=== PATIENT | female | born 1985 | race Caucasian/White ===

== ENCOUNTER 2018-04-23 00:31 | Emergency (ER) | payer OTHER ==
[~2018-04-23] VITALS: Ht 167.6 cm; Wt 64.0 kg
[2018-04-23 00:36] VITALS: Ht 167.6 cm; Wt 64.0 kg
[2018-04-23] MEDS ORDERED: MACROBID 100MG HOME PACK 1 EA VIAL PO ONE (01:00)
[2018-04-23] MEDS ORDERED: NITR-5 PO (01:23)
--- NOTE | 2018-04-23 01:23 | EMERGENCY ROOM VISIT NOTE ---
History First contact with patient: 00:39 Chief Complaint: URINARY SYMPTOMS Stated Complaint: UTI Nursing Triage Summary: pt states she is pretty sure she has a uti, burning and pain wiht urination History of Present Illness The patient is a 32 year old female who presents to the Emergency Room with complaints of a urinary tract infection. The patient states she has had urinary frequency and burning which began a few hours ago. She rates her discomfort a 5/10. She tried to drink water and see if her symptoms would go away but they have persisted. She reports she has fairly frequent UTIs, with a few per year. She denies any history of kidney infections or stones. She took Pyridium prior to arrival. She denies any fevers, abdominal pain, back pain, nausea or vomiting. Review of Systems A complete 6 point review of systems was reviewed with the patient with pertinent positives and negatives as per history of present illness. All else were negative. Past Medical/Surgical History Medical Problems: (1) No significant active problems Social History Smoking Status: Never Smoker Marital Status: Housing Status: lives with family Occupation Status: employed Current/Historical Medications Scheduled Nitrofurantoin Monohyd Macrocr (Macrobid), 100 MG PO BID Physical Exam Vital Signs Date Time Temp Pulse Resp B/P (MAP) Pulse Ox O2 Delivery O2 Flow Rate FiO2 04/23/18 01:32 36.3 81 22 115/81 98 04/23/18 00:36 36.3 80 18 114/72 97 Room Air Physical Exam VITALS: Vitals are noted on the nurse's note and reviewed by myself. Vital signs stable. GENERAL: This is a 32-year-old female, in no acute distress, nondiaphoretic, well-developed well-nourished. HEART: Regular rate and rhythm without murmurs gallops or rubs. LUNGS: Clear to auscultation bilaterally without wheezes, rales or rhonchi. ABDOMEN: Positive bowel sounds x 4. Soft, nontender to palpation. NEURO: Patient was alert and oriented to person place and time. Medical Decision & Procedures Laboratory Results Test 04/23/18 00:55 Urine Color DK YELLOW Urine Appearance CLEAR (CLEAR) Urine pH 8.0 (4.5-7.5) Urine Specific [place] 1.005 (1.000-1.030) Urine Protein NEG (NEG) Urine Glucose (UA) NEG (NEG) Urine Ketones NEG (NEG) Urine Occult Blood 3+ (NEG) Urine Nitrite POS (NEG) Urine Bilirubin NEG (NEG) Urine Urobilinogen NEG (NEG) Urine Leukocyte Esterase LARGE (NEG) Urine WBC (Auto) >30 /hpf (0-5) Urine RBC (Auto) 0-4 /hpf (0-4) Urine Hyaline Casts (Auto) 1-5 /lpf (0-5) Urine Epithelial Cells (Auto) 5-10 /lpf (0-5) Urine Bacteria (Auto) NEG (NEG) Urine Test NEG (NEG) Medications Administered Medications (Trade) Dose Ordered Sig/[place] Route Start Time Stop Time Status Last Admin Dose Admin Nitrofurantoin (Macrobid Homepack 100MG) 1 homepack UD ONCE PO 04/23/18 01:00 04/23/18 01:01 DC 04/23/18 01:02 1 HOMEPACK Medical Decision Differential diagnosis includes UTI, vaginal infection, among others. The patient was evaluated as above. She has findings suggestive of a UTI. She will be placed on Macrobid. She has Pyridium at home and will continue taking this as needed for her discomfort. She was advised to return with new or worsening symptoms. She verbalized understanding of my assessment and treatment plan and was discharged home in good condition. Medication Reconcilliation Current Medication List: was personally reviewed by me Blood Pressure Screening Patient's blood pressure: Normal blood pressure Impression Primary Impression: Urinary tract infection Departure Information Dispostion Home / Self-Care Condition GOOD Prescriptions Nitrofurantoin Monohyd Macrocr (Macrobid) 100 Mg Cap 100 MG PO BID for 4 Days, #8 CAP Prov: Chanda Qureshi ., KATELYN 04/23/18 Referrals No Doctor, Assigned (PCP) Patient Instructions My [facility] Additional Instructions You have been treated in the Emergency Department for a Urinary Tract Infection (UTI). You have been prescribed Macrobid to be taken twice daily for a total of 5 days. This is an antibiotic. All antibiotics have the potential to cause diarrhea. Stop this medication and contact a medical provider if you were to develop any significant adverse side effects including: wheezing, shortness of breath, passing out, vomiting, or a diffuse rash. Always take antibiotics as directed and COMPLETE the ENTIRE course regardless of the improvement of your symptoms. Continue the Pyridium as prescribed. Drink plenty of water and stay well hydrated. As with any trip to the Emergency Department, you should follow-up with your Primary Care Provider from today's visit. Return to the emergency department if your symptoms persist despite treatment plan outlined above or if the following symptoms occur: increased fevers, chills , low back pain, nausea/vomiting, or blood in your urine. Problem Qualifiers Primary Impression: Urinary tract infection Urinary tract infection type: acute cystitis Hematuria presence: with hematuria Qualified Codes: N30.01 - Acute cystitis with hematuria
[2018-04-23 01:32] VITALS: BP 115/81; PULSE 81; TEMP 36.3; O2SAT 98
== END 2018-04-23 01:33 | disposition home or self-care (01) ==
LOC: C.EDB 00:33 → C.EDC 01:33
DX: N39.0 Urinary tract infection, site not specified (principal)